=== PATIENT | male | born 1975 | race Two or more races ===

== ENCOUNTER 2020-10-27 06:10 | Day surgery (SDC) | payer OTHER | END 2020-10-27 12:20 | disposition home or self-care (01) | LOC: AMB-ENDOS 06:10 | PROVIDERS: ATTEND Surgery | DX: K62.89 Other specified diseases of anus and rectum (principal); K64.8 Other hemorrhoids; Z20.828 Contact with and (suspected) exposure to other viral communicable diseases ==

== ENCOUNTER 2023-06-26 05:40 | Day surgery (SDC) | payer OTHER ==
[~2023-06-26] VITALS: Ht 177.8 cm; Wt 96.2 kg
[~2023-06-26 05:40] MED LIST: SYNTHROID112 MCG PO
[2023-06-26] MEDS ORDERED: PERCOCET 5-3251 EACH PO (15:03)
[2023-06-26] MEDS ORDERED: RECTICARE30 GM TOP (15:05)
== END 2023-06-26 19:05 | disposition home or self-care (01) ==
LOC: CIR.AMB 05:40
PROVIDERS: ATTEND Surgery
DX: K60.3 Anal fistula (principal); Z88.6 Allergy status to analgesic agent; Z88.8 Allergy status to other drugs, medicaments and biological substances; Z20.822 Contact with and (suspected) exposure to COVID-19; E03.9 Hypothyroidism, unspecified